=== PATIENT | female | born 1970 | race Caucasian/White ===

== ENCOUNTER 2017-12-12 06:25 | Emergency (ER) | payer MEDICAID ==
[~2017-12-12] VITALS: Ht 172.7 cm; Wt 95.0 kg
[2017-12-12] MEDS ORDERED: SODIUM CHLORIDE 0.9% 1000ML BAG (SEPSIS BOLUS) IV ONE (06:45)
[2017-12-12] MEDS ORDERED: NALOXONE HCL 1 MG/ML 2ML VIAL IV ONE (06:45)
[2017-12-12 06:56] LABS: BASOPHILS % 0.6 % (0.0-2.0); EOSINOPHILS % 1.5 % (0.0-5.0); HEMATOCRIT. 21.8 % (36.0-48.0); LYMPHOCYTES % 36.5 % (20.0-50.0); MEAN CORPUSCULAR HEMOGLOBIN 16.9 pg (28.0-32.0); MEAN CORPUSCULAR VOLUME 57.7 fL (81.0-99.0); MEAN PLATELET VOLUME 7.2 fl (7.4-10.4); NEUTROPHILS % 56.4 % (40.0-76.0); PLATELET 743 x1000/uL (130-400); RED BLOOD CELL COUNT 3.78 mill/uL (4.2-5.4)
[2017-12-12 06:59] LABS: HEMOGLOBIN. 6.4 g/dL (12.0-16.0)
[2017-12-12 07:02] LABS: CHLORIDE 105 mEq/L (98-107)
[2017-12-12 07:03] LABS: PROTHROMBIN TIME 10.6 sec (9.4-11.6)
[2017-12-12 07:07] LABS: ETHANOL BLOOD < 10 mg/dL
[2017-12-12 07:16] LABS: HCG SCREEN NEGATIVE
[2017-12-12] MEDS ORDERED: PROPOFOL 10MG/ML 100ML 100 ML IV ONE (07:27)
[2017-12-12] MEDS ORDERED: PROPOFOL 10MG/ML 100ML 100 ML IV SCH (07:30)
[2017-12-12] MEDS ORDERED: KCL 10MEQ/50ML PREMIX 50 ML IV ONE (07:30)
[2017-12-12] MEDS ORDERED: LORAZEPAM 2MG/ML CPJ IV ONE ×2 (07:30→07:45)
[2017-12-12] MEDS ORDERED: CEFTRIAXONE 2 G PREMIX 50 ML IV ONE (07:30)
[2017-12-12] MEDS ORDERED: DEXAMETHASONE 10 MG in SODIUM CHLORIDE 0.9% 50 ML IV ONE (07:30)
[2017-12-12] MEDS ORDERED: VANCOMYCIN 1 G PREMIX 200 ML IV SCH (07:30)
[2017-12-12 07:40] LABS: PLATELET ESTIMATE INCREASED
[2017-12-12] MEDS ORDERED: DEXAMETHASONE 10 MG/ML VIAL IV SCH (07:45)
[2017-12-12 08:22] LABS: BG CARBOXYHEMOGLOBIN 0.4 % (0.5-1.5); BG DEOXYHEMOGLOBIN 0.3 % (0.0-5.0); BG FRACTION INSPIRED OXYGEN 100; BG METHEMOGLOBIN 0.5 % (0.0-1.5); BG OXYGEN SATURATION 99.7 % (92.0-98.5); BG OXYHEMOGLOBIN 98.8 % (94.0-97.0); BG PCO2 37.5 mmHg (35.0-45.0); BG PH 7.366 (7.350-7.450); BG PO2 332.5 mmHg (75.0-100.0); BG SAMPLE SITE RIGHT RADIAL; BG TIDAL VOLUME(mL) 500 mL; BG TOTAL HEMOGLOBIN 6.7 g/dL (12.0-18.0); BG VENT MODE VENT - A/C; BG VENT RATE 14 set
[2017-12-12] MEDS ORDERED: DEXT 5%/0.45% NACL 1000ML 1,000 ML IV SCH (10:00)
[2017-12-12] MEDS ORDERED: PIPERACILLIN/TAZ 3.375G PREMIX 50 ML IV SCH ×2 (10:00→10:30)
[2017-12-12] MEDS ORDERED: ACYCLOVIR INJ 750 MG in DEXT 5% WATER 125 ML IV STA (10:05)
[2017-12-12] MEDS ORDERED: IPRATROPIUM/ALBUTEROL 0.5-3(2.5)MG/3ML NEB HHN PRN (10:15)
[2017-12-12] MEDS ORDERED: LEVETIRACETAM 500MG PREMIX 100 ML IV ONE (10:30)
[2017-12-12 10:42] LABS: CLARITY URINE CLEAR (CLEAR); COLOR URINE YELLOW (YELLOW); KETONES URINE NEGATIVE (NEGATIVE); LEUKOCYTE ESTERASE URINE NEGATIVE (NEGATIVE); NITRITE URINE NEGATIVE (NEGATIVE); OCCULT BLOOD URINE NEGATIVE (NEGATIVE); PROTEIN URINE NEGATIVE (NEGATIVE); SPECIFIC GRAVITY URINE 1.015 (1.005-1.030); UROBILINOGEN URINE 0.2 E.U./dL (0.2-1.0)
[2017-12-12] MEDS ORDERED: PANTOPRAZOLE SODIUM 40 MG/VIAL IV SCH (11:30)
[2017-12-12 11:38] LABS: *AMPHETAMINES SCREEN URINE NEGATIVE (NEGATIVE); *BARBITURATES SCREEN URINE NEGATIVE (NEGATIVE); *BENZODIAZEPINES SCREEN URINE NEGATIVE (NEGATIVE); *COCAINE SCREEN URINE NEGATIVE (NEGATIVE); METHADONE URINE SCREEN NEGATIVE (NEGATIVE); OPIATES URINE SCREEN NEGATIVE (NEGATIVE)
[2017-12-12 11:40] LABS: CANNABINOID URINE SCREEN NEGATIVE (NEGATIVE); PHENCYCLIDINE URINE SCREEN NEGATIVE (NEGATIVE)
[2017-12-12] MEDS ORDERED: IOHEXOL-350 100 ML BOTTLE ONE (11:41)
[2017-12-12] MEDS ORDERED: PROPOFOL 10MG/ML 100ML 100 ML IV PRN (12:00)
[2017-12-12] MEDS ORDERED: IPRATROPIUM/ALBUTEROL 0.5-3(2.5)MG/3ML NEB HHN SCH (12:00)
[2017-12-12] MEDS ORDERED: NOREPINEPHRINE 4 MG in DEXT 5% WATER 246 ML IV ONE ×2 (13:00→13:15)
[2017-12-12 13:51] VITALS: BP 166/91
[2017-12-12] MEDS ORDERED: ATROPINE SULFATE 1MG/10ML SYR ONE (14:33)
[2017-12-12] MEDS ORDERED: ETOMIDATE 2MG/ML 10ML VIAL IV ONE (14:33)
[2017-12-12] MEDS ORDERED: SUCCINYLCHOLINE CHLORIDE 200MG/10ML VIAL IV ONE (14:33)
[2017-12-12] MEDS ORDERED: VECURONIUM BROMIDE 10 MG/VIAL IV ONE (14:33)
== END 2017-12-12 14:03 | disposition short-term general hospital (02) ==
LOC: ER 06:59 → EDBEDREQ 08:28 → EDBEDREQTM 08:28 → CANRESERV 08:58 → ENRESERV 08:58 → EDBEDREQTM 11:55 → EDBEDREQ 11:55 → ER 14:03 → CANBEDREQ 17:58
DX: A41.9 Sepsis, unspecified organism (principal); J96.00 Acute respiratory failure, unspecified whether with hypoxia or hypercapnia; R65.20 Severe sepsis without septic shock; D64.9 Anemia, unspecified; D72.829 Elevated white blood cell count, unspecified; I65.1 Occlusion and stenosis of basilar artery; R41.82 Altered mental status, unspecified; I70.299 Other atherosclerosis of native arteries of extremities, unspecified extremity; Z79.899 Other long term (current) drug therapy
CPT/HCPCS: 31500; 36415; 36600; 62270; 70450; 70496; 70498; 71045; 74176; 80053; 80061; 80305; 81003; 82375; 82805; 82962; 83036; 83605; 83880; 84443; 84484; 84703; 85025; 85610; 86850; 86900; 86901; 86920; 87040; 87086; 93005; 94002; 96365; 96366; 96367; 96368; 96375; 99291; G0482; J0133; J0330; J0461; J0696; J1100; J1953; J2060; J2310; J2704; J3370; J3490; J7030; P9016; Q9967; Z7610; J7060; A4315